=== PATIENT | male | born 1990 | race Caucasian/White ===

== ENCOUNTER 2021-07-23 22:25 | Emergency (ER) | payer OTHER ==
[~2021-07-23] VITALS: Ht 175.3 cm; Wt 88.0 kg
[2021-07-23 22:30] VITALS: BP_SYST 132
--- NOTE | 2021-07-23 23:50 | NUR ---
Patient to ER bed [address] to gown for evaluation. Side rails up. Report given to Nahomi GUILLAUME(fernanda).
--- NOTE | 2021-07-23 23:53 | NUR ---
RILEY Mendoza at bedside examining patient.
[2021-07-24] MEDS ORDERED: IBUPROFEN 600 MG TABLET PO ONE
[2021-07-24] MEDS ORDERED: BENZONATATE 100 MG CAPSULE (TESSALON) PO ONE
--- NOTE | 2021-07-24 00:03 | NUR ---
Covid Tanisha and Infulenza swab collected and sent to lab.
[2021-07-24] MEDS ORDERED: BENZONATATE 100 MG CAPSULE (TESSALON) ONE (00:29)
[2021-07-24] MEDS ORDERED: PROM473S6 PO (02:07)
[2021-07-24] MEDS ORDERED: IBUP100O22 PO (02:07)
[2021-07-24 02:22] VITALS: BP_SYST 132
--- NOTE | 2021-07-24 02:23 | NUR ---
Patient given written and verbal discharge instructions and verbalizes understanding. ER MD Shabazz discussed with patient the results and treatment provided. Patient in stable condition. ID arm band removed. Rx of Ibuprofen and Promethazine sent to pharmacy of choice. Patient educated on pain management and to follow up with PMD. Pain Scale 0/10. Opportunity for questions provided and answered. Medication side effect fact sheet provided.
== END 2021-07-24 02:22 | disposition home or self-care (01) ==
LOC: SED 22:25
DX: J06.9 Acute upper respiratory infection, unspecified (principal); R05.9 Cough, unspecified; Z20.822 Contact with and (suspected) exposure to COVID-19
CPT/HCPCS: 36415; 71045; 99284

== ENCOUNTER 2022-09-12 05:06 | Emergency (ER) | payer OTHER ==
[~2022-09-12] VITALS: Ht 175.3 cm; Wt 86.2 kg
[~2022-09-12 05:06] MED LIST: IBUP100O22 PO; PROM473S6 PO
--- NOTE | 2022-09-12 05:25 | NUR ---
PT BIB SELF FROM HOME, AMBULATED TO BED 7. PT A&Ox4, ABLE TO MAKE NEEDS KNOWN. PT C/O THROAT PAIN x3 DAYS AND RIGHT EAR PAIN. PT RATES THROAT PAIN 7/10. PT STATES HE SAW PCP 2 DAYS AGO AND WAS PRESCRIBED ANTIBIOTICS. PT STATES HE HAS A COUGH. PT DENIES N/V/D, SOB AND CHEST PAIN. PT DENIES CHILLS. SAFETY PRECAUTIONS IN PLACE.
--- NOTE | 2022-09-12 05:25 | NUR ---
ER Dr. CAMPO at bedside examining patient.
--- NOTE | 2022-09-12 05:27 | NUR ---
Placed in room 7 . Placed on monitoring tech, blood pressure machine and pulse oximeter. To gown for exam. Side rails up. Report given to Lenin GUILLAUME.
[2022-09-12 05:28] VITALS: BP_SYST 120
[2022-09-12] MEDS ORDERED: KETOROLAC TROMETHAMINE 30 MG VIAL IM ONE (05:30)
[2022-09-12] MEDS ORDERED: DEXAMETHASONE SOD PHOSPHATE 10 MG/ML VIAL IM ONE (05:30)
[2022-09-12 05:58] VITALS: BP_SYST 120
--- NOTE | 2022-09-12 05:59 | NUR ---
Patient given written and verbal discharge instructions and verbalizes understanding. ER DR CAMPO discussed with patient the results and treatment provided. Patient in stable condition. ID arm band removed. NO Rx given. Patient educated on pain management and to follow up with PMD. Pain Scale 2/10. Opportunity for questions provided and answered. Medication side effect fact sheet provided.
== END 2022-09-12 05:58 | disposition home or self-care (01) ==
LOC: SED 05:06
DX: J02.9 Acute pharyngitis, unspecified (principal); R50.9 Fever, unspecified; R05.9 Cough, unspecified; Z79.899 Other long term (current) drug therapy
CPT/HCPCS: 99284; 96372; J1100; J1885